=== PATIENT | female | born 1970 | race Caucasian/White ===

== ENCOUNTER → 2016-11-23 | Outpatient (CLI) | payer BC ==
[~2016-11-23] MED LIST: BAYER ASPIRIN R81 MG PO; BENADRYL ALLERG25 M3 PO; FISH OIL1000 MG PO; LOSARTAN POTASS1 TA4 PO; MAGNESIUM200 MG PO; METFORMIN 500M500 M1 PO; MULTIVITAMIN1 TA1 PO; PRAVACHOL80 MG PO; VITAMIN B COMPL1 CAP PO; VITAMIN D31000 I1 PO
[2016-11-23 13:51] LABS: HEMOGLOBIN 12.6 g/dL (12.2-16.2); LYMPH # 1.9 K/mm3 (0.7-4.5); LYMPH % 31.3 % (10-50.0)
[2016-11-23 14:31] LABS: BUN 13 mg/dL (7-18)
[2016-11-23 14:35] LABS: GFR (ESTIMATED) 91 ML/MIN (59-)
== END ==
LOC: CARL-LAB 07:04
PROVIDERS: Physician Assistant
DX: I10 Essential (primary) hypertension (principal); E78.5 Hyperlipidemia, unspecified; E88.81 Metabolic syndrome and other insulin resistance